=== PATIENT | female | born 1955 | race Caucasian/White ===

== ENCOUNTER 2016-06-30 08:04 | Observation (INO) | payer OTHER ==
--- NOTE | ~2016-06-30 | HP ---
History And Physical [address] [place]. [address] NAME: JONA NAVA : 55 STATUS : ADM Naima PAT#: [id number] AGE: 61 ADM/REG DATE : 06/30/16 MR#: [id number] REPORT SERV DATE: 06/30/16 DICTATED BY: REYNALDO WILSON DATE: 06/30/16 REPORT STATUS : Draft TRANSCRIBED BY: MODL DATE: 06/30/16 DATE OF ADMISSION: 06/30/2016 REASON FOR ADMISSION: Acute on chronic COPD exacerbation. AIR TRAFFIC SUPERVISOR: Dr. Sheila Berry. PRIMARY CARE PHYSICIAN: Ms. Sarina Babin, nurse practitioner. CHIEF COMPLAINT: "I have been having worsening shortness of breath for the past couple of days." HISTORY OF PRESENT ILLNESS: A 61-year-old white female with a known history of emphysema on CT scan, presented to the ER with increasing worsening shortness of breath. The patient was last hospitalized in November, seen by Dr. Berry who had instructed her to remove her bird. However, when addressed today, the patient declines that he ever mentioned removing the bird from her premises. At any rate, the patient has been pretty well controlled from a COPD standpoint on p.r.n. albuterol Incruse Ellipta and Striverdi Respimat. The patient states that she ran out of her Ventolin and Incruse a few days ago. She states that she has been trying to get in touch with Dr. Berry's office for the past two weeks to get her medication refilled. However, she keeps being told by the clinic that Dr. Berry is in the clinic and has not yet filled out the new prescriptions. The patient denies any fever, chills, nausea, or vomiting. She does admit to some dry cough, but no sputum production. The patient possibly received Solu-Medrol inhaler and albuterol nebulizer en route to the ER as she was not given any medications in the ER other than IV fluids. Dr. Ospina had noted that she had very mild wheezing on exam and she was saturating okay. However, her blood pressure would drop and decided to admit her for dehydration and mild acute COPD exacerbation. REVIEW OF SYSTEMS: As per HPI. Otherwise, 10-point systems were reviewed and are negative. PAST MEDICAL HISTORY: COPD, hypertension, depression, hyperlipidemia, chronic pain management on methadone. PAST SURGICAL HISTORY: Cholecystectomy and hysterectomy. ALLERGIES: NO KNOWN DRUG ALLERGIES. SOCIAL HISTORY: She quit smoking, although using a vapor inhaler. Lives with multiple dogs and a bird in her bedroom. 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 FAMILY HISTORY: Stroke, kidney stones, heart disease, and cancer. MEDICATIONS: Include albuterol p.r.n., Prozac 40 mg daily, hydrochlorothiazide 12.5 mg daily, Prinivil 40 mg daily, Claritin 10 mg daily, lovastatin 20 mg daily, MiraLAX daily, History And Physical [address] [address] NAME: JONA NAVA : 55 STATUS : ADM Naima PAT#: [id number] AGE: 61 ADM/REG DATE : 06/30/16 MR#: [id number] REPORT SERV DATE: 06/30/16 DICTATED BY: REYNALDO WILSON DATE: 06/30/16 REPORT STATUS : Draft TRANSCRIBED BY: ROCIO DATE: 06/30/16 Incruse Ellipta 62.5 daily, Striverdi Respimat two inhalers daily and methadone 80 mg daily. PHYSICAL EXAMINATION: VITAL SIGNS: On exam, O2 sats are 96% on room air. Blood pressure is 106/84, but did drop down into the 80s earlier in the ER. Temperature is afebrile, pulse is 99, respirations 18. GENERAL: She is no acute distress. Alert and oriented x3. Very pleasant. HEENT: Normocephalic and atraumatic head. Extraocular muscles are intact. Oropharynx is clear. NECK: Supple. No JVD. CARDIAC: Regular rhythm with mild tachycardia. No murmurs, rubs, or gallops. PULMONARY: Diminished breath sounds, but very faint mild expiratory wheezing. ABDOMEN: Soft, nontender, nondistended. Positive bowel sounds. EXTREMITIES: Show no cyanosis, no edema. NEUROLOGIC: No focal deficits. SKIN: Warm and dry. PSYCHIATRIC: The patient is cooperative. Mood is appropriate. LABORATORY DATA: Labs show white blood cell count 11.2, hemoglobin 11.9, platelets 319. CMP shows a sodium of 134, BUN 43, creatinine 1.6, glucose 107. Negative troponin. BNP is 8.7. Chest x-ray shows no acute process. EKG is normal. IMPRESSION: 1. Acute on chronic obstructive pulmonary disease exacerbation, very mild. 2. Opioid dependence. Dependent on methadone. 3. Major depressive disorder. 4. Orthostatic hypotension with dehydration. PLAN: 1. To do IV fluids and hold her PHIL inhibitor and diuretics. She had a normal renal ultrasound in November. To dissipate her creatinine to improve a little bit tomorrow morning. 2. We will start prednisone 40 mg once a day along with Dulera and bronchodilator protocol. 3. Resume her methadone. 4. If her blood pressure is okay in the morning, the patient will be discharged home on Friday from the CDU with followup with Dr. Berry. The patient will most definitely need a prescription for her inhalers, especially Incruse and Ventolin for which she ran out of. Dr. Shepard to assume care of this patient on 07/01. BIJAN/ROCIO Reynaldo Wilson MD History And Physical [address] [address] NAME: JONA NAVA : 55 STATUS : ADM Naima PAT#: [id number] AGE: 61 ADM/REG DATE : 06/30/16 MR#: [id number] REPORT SERV DATE: 06/30/16 DICTATED BY: REYNALDO WILSON DATE: 06/30/16 REPORT STATUS : Draft TRANSCRIBED BY: MODL DATE: 06/30/16 / [id number] CC: Favio Shepard Jr, MD Hisham F. Qutob, MD
--- NOTE | ~2016-06-30 | DS ---
Discharge Summary [facility] [address] [place]. [address] NAME: JONA NAVA : 55 STATUS : DIS Naima PAT#: [id number] AGE: 61 ADM/REG DATE : 06/30/16 MR#: [id number] REPORT SERV DATE: 07/02/16 DICTATED BY: JR. FUNES WILLIAM JOHN DATE: 07/01/16 REPORT STATUS : Draft TRANSCRIBED BY: ROCIO DATE: 07/01/16 ADMISSION DATE: 06/30/2016 DISCHARGE DATE: 07/01/2016 DISCHARGE DIAGNOSES: Include: 1. Acute exacerbation of chronic obstructive pulmonary disease. 2. Chronic pain syndrome with opioid dependence. 3. Major depression disorder. 4. Dehydration with orthostasis. OPERATIONS/PROCEDURES AND TREATMENTS: Include: Chest x-ray done 06/30/2016, which showed clear lung martines. DISCHARGE MEDICATIONS: Include: 1. Incruse Ellipta one puff daily. 2. Albuterol metered-dose inhaler two puffs every four hours as needed. 3. MiraLAX one packet daily as needed. 4. Striverdi Respimat two inhaled daily. 5. Norvasc 10 mg daily. 6. Doxycycline 100 mg orally twice a day. 7. Prozac 40 mg daily. 8. Claritin 10 mg daily. 9. Mevacor 20 mg daily. 10.Methadone 80 mg daily. 11.Prednisone 40 mg daily for two days, then 20 for three days, then 10 for three days. HOSPITAL COURSE: The patient is a 61-year-old white female with a history of emphysema on CT scan, who presented to the emergency room with worsening shortness of breath over the past few days. She is followed by Dr. Berry and apparently was told in the past to remove a bird from her premises for symptomatic relief. The patient said she had not been told that. She also said that she has run out of several medications. She has been contacting Dr. Berry's office for about two weeks and apparently, has gotten no response and has therefore been out of her Incruse Ellipta and albuterol metered-dose inhalers. She came to the emergency room for shortness of breath. The patient also has a concern that her blood pressure, which usually runs 200 systolic down to 106 and she seems to get dehydrated easily. For initial exam and laboratory, please see Dr. Tim's excellent dictated history and physical. The patient was admitted for acute exacerbation of COPD. She was placed on a prednisone taper and inhaled medications as above. The patient did not require oxygen and had no conversational dyspnea nor dyspnea on exertion. Regarding her orthostatic hypotension, she had orthostatic vital signs done, which were normal. Supine blood pressure 109/58, heart rate of 80; sitting blood pressure 108/57, heart rate 77; standing blood pressure 104/57, heart rate 74. Given her dehydration, we will stop her hydrochlorothiazide and lisinopril, replaced with Norvasc 10 mg daily and monitor. The patient already has followup with Nephrology. Discharge Summary [address] [address] NAME: JONA NAVA : 55 STATUS : DIS Naima PAT#: [id number] AGE: 61 ADM/REG DATE : 06/30/16 MR#: [id number] REPORT SERV DATE: 07/02/16 DICTATED BY: JR. FUNES WILLIAM JOHN DATE: 07/01/16 REPORT STATUS : Draft TRANSCRIBED BY: ROCIO DATE: 07/01/16 The patient will have her IV fluids held and we will recheck her blood pressure in approximately 3 hours. If systolic blood pressure is adequate, we will discharge her home today. DISCHARGE DIET: Regular. ACTIVITY: As tolerated. For discharge exam and laboratory, please see daily progress note. WJF/ROCIO Favio Funes Jr, MD / [id number] CC: Favio Funes Jr, MD SIMMONS, CINDY MARIE
[~2016-06-30 08:04] MED LIST: ASAEC PO; CLARIT10 PO; DOLOPHINE10 MG PO; FLONASE NAS; INCRUSE ELLIPTA 62.5 INH; IVVIBRA PO; LISINOPRIL40 MG PO; MEVACOR PO; MICROZIDE PO; MIRALAX POWDER1 PKT PO; P10 PO; PROZAC40 MG PO; VENTOLIN HFA INH
[2016-06-30 08:57] LABS: BASOPHILS 0.4 %; BASOPHILS ABSOLUTE 0.05 10/3/uL (0.0-0.16); EOSINOPHILS ABSOLUTE 0.45 10/3/uL (0.0-0.53); HEMATOCRIT 34.7 % (36.0-48.0); HEMOGLOBIN 11.9 g/dL (12.0-16.0); IMMATURE GRANULOCYTES 0.3 %; IMMATURE GRANULOCYTES ABSOLUTE 0.03 10/3/uL (0.0-0.11); LYMPHOCYTES 9.7 %; LYMPHOCYTES ABSOLUTE 1.09 10/3/uL (0.67-4.30); MANUAL DIFF NO %; MEAN CORPUS HGB CONC 34.3 g/dL (32.0-36.0); MEAN CORPUSCULAR HEMOGLOB 29.5 pg (26.0-34.0); MEAN CORPUSCULAR VOLUME 86.1 fL (80-100); MEAN PLATELET VOLUME 8.7 fL (9.2-13.0); MONOCYTES 1.8 %; NEUTROPHILS 83.8 %; NEUTROPHILS ABSOLUTE 9.37 10/3/uL (2.02-8.40); PLATELET COUNT 319 10/3/uL (150-400); RBC DISTRIBUTION WIDTH 12.7 % (12.0-16.0); RED CELL COUNT 4.03 10/6/uL (4.0-5.6); WHITE BLOOD CELLS 11.2 10/3/uL (4.5-10.5)
[2016-06-30 09:16] LABS: ALBUMIN 3.8 G/DL (3.5-5.0); ALKALINE PHOSPHATASE 85 U/L (45-117); BUN (BLOOD UREA NITROGEN) 43 MG/DL (6-23); CALCIUM, SERUM 9.3 MG/DL (8.5-10.4); CHLORIDE, SERUM 102 MMOL/L (96-112); CO2 (CARBON DIOXIDE) 23 MMOL/L (24-34); CREATININE 1.59 MG/DL (0.55-1.02); GFR AFRICAN AMERICAN 40 ML/MIN (>=60); GFR NON AFRICAN AMERICAN 35 ML/MIN (>=60); GLOBULIN 3.9 G/DL (2.5-4.1); GLUCOSE, SERUM 107 MG/DL (60-99); POTASSIUM, SERUM 4.7 MMOL/L (3.5-5.3); SGOT(AST) 23 U/L (5-40); SGPT(ALT) 23 U/L (5-65); SODIUM, SERUM 134 MMOL/L (135-148); TOTAL BILIRUBIN 0.4 MG/DL (0-1.2); TOTAL PROTEIN 7.7 G/DL (6.0-8.5); TROPONIN I <0.02 NG/ML (<0.05)
[2016-06-30] MEDS ORDERED: STRIVERDI RESPIMAT PO (12:30)
[2016-06-30] MEDS ORDERED: DOLOPHINE10 MG PO (12:34)
[2016-07-01 04:30] LABS: BASOPHILS 0 %; EOSINOPHILS 0 %; HEMATOCRIT 30.6 % (36.0-48.0); HEMOGLOBIN 10.3 g/dL (12.0-16.0); IMMATURE GRANULOCYTES 0.2 %; IMMATURE GRANULOCYTES ABSOLUTE 0.02 10/3/uL (0.0-0.11); LYMPHOCYTES ABSOLUTE 0.78 10/3/uL (0.67-4.30); MANUAL DIFF NO %; MEAN CORPUS HGB CONC 33.7 g/dL (32.0-36.0); MEAN CORPUSCULAR HEMOGLOB 29.7 pg (26.0-34.0); MEAN CORPUSCULAR VOLUME 88.2 fL (80-100); MEAN PLATELET VOLUME 8.7 fL (9.2-13.0); MONOCYTES 6.9 %; MONOCYTES ABSOLUTE 0.68 10/3/uL (0.21-1.20); NEUTROPHILS 84.9 %; NEUTROPHILS ABSOLUTE 8.31 10/3/uL (2.02-8.40); PLATELET COUNT 279 10/3/uL (150-400); RBC DISTRIBUTION WIDTH 12.6 % (12.0-16.0); RED CELL COUNT 3.47 10/6/uL (4.0-5.6); WHITE BLOOD CELLS 9.8 10/3/uL (4.5-10.5)
[2016-07-01 04:54] LABS: BUN (BLOOD UREA NITROGEN) 37 MG/DL (6-23); CALCIUM, SERUM 8.3 MG/DL (8.5-10.4); CHLORIDE, SERUM 110 MMOL/L (96-112); CO2 (CARBON DIOXIDE) 21 MMOL/L (24-34); CREATININE 1.31 MG/DL (0.55-1.02); GFR AFRICAN AMERICAN 51 ML/MIN (>=60); GFR NON AFRICAN AMERICAN 44 ML/MIN (>=60); GLUCOSE, SERUM 164 MG/DL (60-99); SODIUM, SERUM 141 MMOL/L (135-148)
[2016-07-01] MEDS ORDERED: NORV10 PO (13:02)
[2016-07-01] MEDS ORDERED: MONODOX100 MG PO (13:03)
[2016-07-01] MEDS ORDERED: STERAPRED DS10 MG (13:03)
[2016-07-01] MEDS ORDERED: INCRUSE ELLI62.5 MCG INH ×2 (13:04→13:06)
== END 2016-07-01 16:36 | disposition home or self-care (01) ==
LOC: ER 08:04 → CDU1 13:56
PROVIDERS: Emergency Medicine; Internal Medicine
DX: J44.1 Chronic obstructive pulmonary disease with (acute) exacerbation (principal); I10 Essential (primary) hypertension; F32.9 Major depressive disorder, single episode, unspecified; E78.5 Hyperlipidemia, unspecified; Z90.49 Acquired absence of other specified parts of digestive tract; Z90.710 Acquired absence of both cervix and uterus; Z87.891 Personal history of nicotine dependence; Z79.899 Other long term (current) drug therapy; I95.1 Orthostatic hypotension; E86.0 Dehydration; F11.20 Opioid dependence, uncomplicated; G89.4 Chronic pain syndrome
CPT/HCPCS: 71010; 80048; 80053; 82533; 83605; 83880; 84484; 85025; 87040; 94640; 96360; 96372; 99285; A9270-GY; G0378